=== PATIENT | male | born 1960 | race Caucasian/White ===

== ENCOUNTER 2022-05-30 10:00 | Day surgery (SDC) | payer OTHER ==
[~2022-05-30 10:00] MED LIST: LACTATED RINGERS 1,000 ML IV SCH
[2022-05-30 10:47] VITALS: TEMP 97.4
[2022-05-30] MEDS ORDERED: PROPOFOL 10 MG/ML 20 ML VIAL IV ONE (11:17)
--- NOTE | 2022-05-30 11:20 | P.GSHP ---
History of Present Illness H&P Date: 05/30/22 Chief Complaint: Cancer screening 61-year-old male here today for colonoscopy. Last colonoscopy normal 9 years ago. No bowel complaints. No family history of colon cancer. Past Medical History Past Medical History: GERD/Reflux, Hyperlipidemia, Hypertension Additional Past Medical History / Comment(s): Occasional hearburn. mild arthritis. fingers sometimes get numb a little History of Any Multi-Drug Resistant Organisms: None Reported Additional Past Surgical History / Comment(s): colonoscopy Past Anesthesia/Blood Transfusion Reactions: No Reported Reaction Additional Past Anesthesia/Blood Transfusion Reaction / Comment(s): no blood transfusions. Smoking Status: Never smoker - Past Family History Father Family Medical History: Deep Vein Thrombosis (DVT) Additional Family Medical History / Comment(s): pacemaker Mother Additional Family Medical History / Comment(s): parkinsons Medications and Allergies Home Medications Medication Instructions Recorded Confirmed Type Acetaminophen [Tylenol Arthritis] 650 mg PO DIRECTED 05/24/22 05/30/22 History Ascorbic Acid [Vitamin C] 1,000 mg PO PC-SUPPER 05/24/22 05/30/22 History Atorvastatin [Lipitor] 10 mg PO HS 05/24/22 05/30/22 History Sertraline [Zoloft] 100 mg PO DAILY 05/24/22 05/30/22 History Unk Multi Vitamin 1 tab PO PC-SUPPER 05/24/22 05/24/22 History Unk Omega3 900/Fish Oil 1400 1 cap PO PC-SUPPER 05/24/22 05/24/22 History amLODIPine BESYLATE/BENAZEPRIL 1 cap PO DAILY 05/24/22 05/30/22 History [amLODIPine BESYLATE/BENAZEPRIL 10-20 mg] Allergies Allergy/AdvReac Type Severity Reaction Status Date / Time No Known Allergies Allergy Verified 05/30/22 10:33 Surgical - Exam Vital Signs Temp Pulse Resp BP Pulse Ox 97.4 F L 115 H 16 136/81 96 05/30/22 10:46 05/30/22 10:46 05/30/22 10:46 05/30/22 10:46 05/30/22 10:46 Physical exam: General: Well-developed, well-nourished HEENT: Normocephalic, sclerae nonicteric Abdomen: Nontender, nondistended Extremities: No edema Neuro: Alert and oriented Assessment and Plan (1) Colon cancer screening Narrative/Plan: Will proceed with colonoscopy at this time. Current Visit: Yes Status: Acute Code(s): Z12.11 - ENCOUNTER FOR SCREENING FOR MALIGNANT NEOPLASM OF COLON SNOMED Code(s): 450352059
--- NOTE | 2022-05-30 11:36 | P.PCN ---
Date of Procedure: 05/30/22 Procedure(s) Performed: PREOPERATIVE DIAGNOSIS: Colon cancer screening POSTOPERATIVE DIAGNOSIS: Small sigmoid polyp, diverticulosis PROCEDURE: Colonoscopy with fulguration ANESTHESIA: MAC SURGEON: Rocky Ramirez M.D. SPECIMENS: None ENDOSCOPIC PROCEDURE: The patient was placed on the endoscopy table in the left decubitus position. The Olympus colonoscope was inserted into the anus and passed under direct visualization to the base of the cecum. The appendiceal orifice was visualized. From that point the scope was slowly withdrawn inspecting all surfaces carefully. There were no neoplastic inflammatory or polypoid lesions throughout the cecum, ascending, transverse, and descending colon. In the sigmoid colon at 25 cm there was a small flat sessile polyp. Attempts to remove this using snare with cautery technique resulted in fulguration of polyps. No specimen was seen. The remainder of the sigmoid and rectum appeared normal. There was mild sided diverticulosis. Digital rectal examination was normal. The patient was taken to the recovery room in stable condition per anesthesia guidelines. RECOMMENDATIONS: Resume diet. Repeat colonoscopy in 7-10 years.
[2022-05-30 11:44] VITALS: RESP 18
[2022-05-30 11:56] VITALS: BP 122/87; PULSE 95
== END 2022-05-30 12:17 | disposition home or self-care (01) ==
LOC: ORWHC2ENDO 10:00
PROVIDERS: ATTEND Surgery
DX: Z12.11 Encounter for screening for malignant neoplasm of colon (principal); K63.5 Polyp of colon; K57.30 Diverticulosis of large intestine without perforation or abscess without bleeding; K21.9 Gastro-esophageal reflux disease without esophagitis; E78.5 Hyperlipidemia, unspecified; I10 Essential (primary) hypertension; M19.90 Unspecified osteoarthritis, unspecified site; Z83.2 Family history of diseases of the blood and blood-forming organs and certain disorders involving the immune mechanism; Z81.8 Family history of other mental and behavioral disorders; Z79.899 Other long term (current) drug therapy
CPT/HCPCS: 45385; J2704